=== PATIENT | female | born 1935 | race Caucasian/White ===

== ENCOUNTER 2020-11-05 13:09 | Emergency (ER) | payer MEDICARE ==
[~2020-11-05] VITALS: Ht 162.6 cm; Wt 61.4 kg
--- NOTE | 2020-11-05 14:08 | PHYS DOC ---
Past History Past Medical History: Arthritis, Hypothyroid, UTI Past Surgical History: , Other Additional Past Surgical Histo: left leg vein stripping; right knee replacement Alcohol Use: Occasionally Additional Alcohol Information: glass of wine in evening occasionally General Adult EDM: Chief Complaint: NEURO SYMPTOMS/DEFICITS HPI: HPI: Patient is a 85-year-old female who presents with right arm tingling from her elbow to her hand. Patient states symptoms started 4 days ago and states symptoms are intermittent. Patient denies any trauma. Patient states "I did get my Covid vaccine 2 weeks ago so I did not know if that had anything to do with it". Patient is unable to reproduce symptoms. Patient denies weakness, dizziness, chest pain. Patient states "it is not painful it is more irritating". Patient has full range of motion. Review of Systems: Review of Systems: Constitutional: Denies fever or chills Eyes: Denies change in visual acuity HENT: Denies nasal congestion or sore throat Respiratory: Denies cough or shortness of breath Cardiovascular: Denies chest pain or edema GI: Denies abdominal pain, nausea, vomiting, bloody stools or diarrhea : Denies dysuria Musculoskeletal: Denies back pain or joint pain Integument: Denies rash Neurologic: Denies headache, focal weakness, reports tingling in right arm Endocrine: Denies polyuria or polydipsia Lymphatic: Denies swollen glands Psychiatric: Denies depression or anxiety Allergies: Allergies: Allergies Coded Allergies Type Severity Reaction Last Updated Verified No Known Drug Allergies 11/05/20 No Physical Exam: PE: Constitutional: Well developed, well nourished, no acute distress, non-toxic appearance. [] HENT: Normocephalic, atraumatic, bilateral external ears normal, oropharynx gauri st, no oral exudates, nose normal. [] Eyes: PERRLA, EOMI, conjunctiva normal, no discharge. [] Neck: Normal range of motion, no tenderness, supple, no stridor. [] Cardiovascular:Heart rate regular rhythm, no murmur [] Lungs & Thorax: Bilateral breath sounds clear to auscultation [] Abdomen: Bowel sounds normal, soft, no tenderness, no masses, no pulsatile masses. [] Skin: Warm, dry, no erythema, no rash. [] Back: No tenderness, no CVA tenderness. [] Extremities: No tenderness, no cyanosis, no clubbing, ROM intact, no edema. [] Neurologic: Alert and oriented X 3, normal motor function, normal sensory function, no focal deficits noted. [] Psychologic: Affect normal, judgement normal, mood normal. [] Current Patient Data: Vital Signs: Vital Signs Date Time Temp Pulse Resp B/P (MAP) Pulse Ox O2 Delivery O2 Flow Rate FiO2 11/05/20 13:26 97.6 79 21 166/82 (110) 96 Room Air EKG: EKG: Sinus rhythm. Heart rate 79 bpm. [] Radiology/Procedures: Radiology/Procedures: []EXAM: Head CT without contrast. HISTORY: Upper extremity paresthesia. TECHNIQUE: Computed tomographic images of the head were obtained without contrast. *One or more of the following individualized dose reduction techniques were uti lized for this examination: 1. Automated exposure control. 2. Adjustment of the mA and/or kV according to patient size. 3. Use of iterative reconstruction technique. COMPARISON: None. FINDINGS: There is no acute or subacute extra-axial or intraparenchymal hemorrhage. There is no mass effect or midline shift. There is no hydrocephalus. There are areas of decreased attenuation within the cerebral white matter, nonspecific and likely related to chronic small vessel disease. There is cerebral atrophy. The visualized portions of the orbits, paranasal sinuses and mastoid air cells are unremarkable. No suspicious calvarial lesion is seen. IMPRESSION: 1. No acute intracranial finding. Note is made that MRI is more sensitive for acute infarction. 2. Bilateral cerebral white matter changes, likely due to chronic small vessel disease. 3. Cerebral atrophy. Electronically signed by: Marilin Dick MD (11/05/2020 2:49 PM) [id number] EXAM: Chest, single view. HISTORY: Paresthesia. COMPARISON: None. FINDINGS: A frontal view of the chest obtained. There is no infiltrate, pleural effusion or pneumothorax. The heart is normal in size. There is biapical pleural parenchymal scarring. IMPRESSION: No acute pulmonary finding. Electronically signed by: Marilin Dick MD (11/05/2020 2:49 PM) [id number] Heart Score: C/O Chest Pain: No Risk Factors: Risk Factors: DM, Current or recent (<one month) smoker, HTN, HLP, family history of CAD, obesity. Risk Scores: Score 0 - 3: 2.5% MACE over next 6 weeks - Discharge Home Score 4 - 6: 20.3% MACE over next 6 weeks - Admit for Clinical Observation Score 7 - 10: 72.7% MACE over next 6 weeks - Early Invasive Strategies Course & Med Decision Making: Course & Med Decision Making Pertinent Labs and Imaging studies reviewed. (See chart for details) []Patient is a 85-year-old female who presents with right arm tingling from her elbow to her hand. Patient states symptoms started 4 days ago and states symptoms are intermittent. Patient denies any trauma. Patient states "I did get my Covid vaccine 2 weeks ago so I did not know if that had anything to do with it". Patient is unable to reproduce symptoms. Patient denies weakness, dizziness, chest pain. Patient states "it is not painful it is more irritating". Patient has full range of motion. Labs are all unremarkable. CT of head negative for acute intracranial finding. Chest x-ray is negative for any acute abnormality. Spoke with patient and family regarding patient's blood pressure. Patient's blood pressure has been elevated while in the emergency room. When I went to reassess the patient blood pressure was 220s over 110s. Family states that patient does not have a history of hypertension and blood pressure is normally in the 120s. Patient does not take medication for blood pressure. Patient's family states that she has complained of a headache for the last 2 days. Creatinine is 1.2. EKG sinus rhythm. Heart rate 79 bpm. Discussed admission with patient and son. Patient was strongly against staying overnight. Patient states they are able to get an appointment in the morning with PCP. Patient agrees to return to the emergency room with worsening symptoms or concerns. Patient has appointment with PCP at 9 AM for follow-up. Patient and son are both okay with this plan. [place] Disclaimer: Goldydanny Disclaimer: This electronic medical record was generated, in whole or in part, using a voice recognition dictation system. Departure Departure: Impression: Primary Impression: Hypertension Qualified Codes: I10 - Essential (primary) hypertension Disposition: 01 DC HOME SELF CARE/HOMELESS Condition: GOOD Referrals: HERNANDO NUNES MD (PCP) Patient Instructions: Managing Your High Blood Pressure Additional Instructions: You were seen in the ED for tingling in your left forearm. The CT of your head was negative for any acute abnormalities. Your lab work was unremarkable. I want you to follow up with tomorrow morning to address the increase in your blood pressure. Make sure to take your blood pressure cuff with you to the doctor to verify the accuracy of your BP machine. Please return to the ED with worsening symptoms or concerns. EMERGENCY DEPARTMENT GENERAL DISCHARGE INSTRUCTIONS Thank you for coming to [facility] (ED) today and trusting us with you care. We trust that you had a positivie experience in our Emergency Department. If you wish to speak to the department management, you may call the director at [phone]. YOUR FOLLOW UP INSTRUCTIONS ARE FOLLOWS: 1. Do you have a private Doctor? If you do not have a private doctor, please ask for a resource list of physicians or clinics that may be able to assist you with follow up care. 2. The Emergency Physician has interpreted your x-rays. The X-Ray specialist will also review them. If there is a change in the findings, you will be notified in 48 hours when at all possible. 3. A lab test or culture has been done, your results will be reviewed and you will be notified if you need a change in treatment. ADDITIONAL INSTRUCTIONS AND INFORMATION: 1. Your care today has been supervised by a physician who is specially trained in emergency care. Many problems require more than one evaluation for a complete diagnosis and treatment. We recommend that you schedule your follow up appointment as recommended to ensure complete treatment of you illness or injury. If you are unable to obtain follow up care and continue to have a problem, or if your condition worsens, we recommend that you return to the ED. 2. We are not able to safely determine your condition over the phone nor are we able to give sound medical advice over the phone. For these safety reasons, if you call for medical advice we will ask you to come to the ED for further evaluation. 3. If you have any questions regarding these discharge instructions please call the ED at [phone]. SAFETY INFORMATION: In the interest of safety, wellness, and injury prevention; we encourage you to wear your sealbelt, if you smoke; quite smoking, and we encourage family to use a protective helmet for bicycling and other sporting events that present an increased risk for head injury. IF YOUR SYMPTOMS WORSEN OR NEW SYMPTOMS DEVELOP, OR YOU HAVE CONCERNS ABOUT YOUR CONDITION; OR IF YOUR CONDITION WORSENS WHILE YOU ARE WAITING FOR YOUR FOLLOW UP APPOINTMENT; EITHER CONTACT YOUR PRIMARY CARE DOCTOR, THE PHYSICIAN WHOSE NAME AND NUMBER YOU WERE GIVEN, OR RETURN TO THE ED IMMEDIATELY. PATRICIA MARTINES APRN Nov 05, 2020 14:08
[2020-11-05 14:36] LABS: BASO # 0.1 x10^3/uL (0.0-0.2); BASO % 1 % (0-3); EOS # 0.1 x10^3/uL (0.0-0.7); EOS % 1 % (0-3); HEMATOCRIT 36.8 % (36.0-47.0); HEMOGLOBIN 12.4 g/dL (12.0-15.5); LYMPH # 1.2 x10^3/uL (1.0-4.8); LYMPH % 13 % (24-48); MEAN CORPUSCULAR HEMOGLOBIN 32 pg (25-35); MEAN CORPUSCULAR HGB CONC 34 g/dL (31-37); MEAN CORPUSCULAR VOLUME 96 fL (79-100); MONO # 0.7 x10^3/uL (0.0-1.1); MONO % 7 % (0-9); NEUT # 7.2 x10^3uL (1.8-7.7); NEUT % 78 % (31-73); PLATELET COUNT 220 x10^3/uL (140-400); RED BLOOD COUNT 3.83 x10^6/uL (3.50-5.40); RED CELL DISTRIBUTION WIDTH 12.6 % (11.5-14.5); WHITE BLOOD COUNT 9.2 x10^3/uL (4.0-11.0)
[2020-11-05 14:49] LABS: CREATININE 1.2 mg/dL (0.6-1.0); GFR 42.5; POTASSIUM 4.2 mmol/L (3.5-5.1)
--- NOTE | 2020-11-05 14:51 | RAD ---
EXAM: Head CT without contrast. HISTORY: Upper extremity paresthesia. TECHNIQUE: Computed tomographic images of the head were obtained without contrast. *One or more of the following individualized dose reduction techniques were utilized for this examina tion: 1. Automated exposure control. 2. Adjustment of the mA and/or kV according to patient size. 3. Use of iterative reconstruction technique. COMPARISON: None. FINDINGS: There is no acute or subacute extra-axial or intraparenchymal hemorrhage. There is no mass effect or midline shift. There is no hydrocephalus. There are areas of decreased attenuation within the cerebral white matter, nonspecific and likely rel ated to chronic small vessel disease. There is cerebral atrophy. The visualized portions of the orbits, paranasal sinuses and mastoid air cells are unremarkable. No s uspicious calvarial lesion is seen. IMPRESSION: 1. No acute intracranial finding. Note is made that MRI is more sensitive for acute infarction. 2. Bilateral cerebral white matter changes, likely due to chronic small vessel disease. 3. Cerebral atrophy. Electronically signed by: Marilin Dick MD (11/05/2020 2:49 PM) [id number]
--- NOTE | 2020-11-05 14:52 | RAD ---
EXAM: Chest, single view. HISTORY: Paresthesia. COMPARISON: None. FINDINGS: A frontal view of the chest obtained. There is no infiltrate, pleural effusion or pneumotho rax. The heart is normal in size. There is biapical pleural parenchymal scarring. IMPRESSION: No acute pulmonary finding. Electronically signed by: Marilin Dick MD (11/05/2020 2:49 PM) [id number]
--- NOTE | 2020-11-05 15:13 | EKG ---
[address] [address] Test Date: 2020-11-05 Test Time: 14:15:14 Pat Name: MARY ANN BLANC Department: Room: Gender: F Learning Disabled Teacher: JULIAN : 1935 Requested By: PATRICIA MARTINES Order Number: [id number] Reading MD: Measurements Intervals [place] Rate: 79 P: 63 IL: 148 QRS: 36 QRSD: 98 T: 72 QT: 366 QTc: 421 Interpretive Statements SINUS RHYTHM T ABNORMALITY IN HIGH LATERAL LEADS ABNORMAL ECG RI6.02 No previous ECG available for comparison
[2020-11-05 17:17] LABS: COLOR,URINE STRAW
[2020-11-05 17:18] LABS: BILIRUBIN,URINE NEG (NEG); CLARITY,URINE CLEAR; GLUCOSE,URINE NEG (NEG)
[2020-11-05 17:19] LABS: NITRITE,URINE NEG (NEG); UROBILINOGEN,URINE 0.2 mg/dL (0.2 mg/dL)
[2020-11-05 17:22] LABS: BACTERIA,URINE FEW /HPF (0-FEW); RBC,URINE OCC /HPF (0-2); SQUAMOUS EPITHELIAL CELL,UR FEW /LPF; WBC,URINE OCC /HPF (0-4)
[2020-11-05 17:23] LABS: YEAST,URINE PRESENT /HPF
[2020-11-05 18:38] VITALS: BP 192/84
== END 2020-11-05 18:40 | disposition home or self-care (01) ==
LOC: ER 13:09
DX: I10 Essential (primary) hypertension (principal); R20.2 Paresthesia of skin; M19.90 Unspecified osteoarthritis, unspecified site; E03.9 Hypothyroidism, unspecified; Z87.440 Personal history of urinary (tract) infections
CPT/HCPCS: 36415; 70450; 71045; 80048; 81001; 84484; 85025; 93005; 99285

== ENCOUNTER → 2020-11-18 | Outpatient (CLI) | payer MEDICARE ==
[2020-11-05 18:38] VITALS: BP 192/84
--- NOTE | 2020-11-18 17:01 | RAD ---
US DPLX CAROTID BILAT History: Reason: RT ARM NUMBNESS, POSSIBLE TIA / Spl. Instructions: / History: COMPARISON: None Technique: Duplex sonography of the cervical portion of both carotid arteries was performed. Real-bronson e grayscale, color flow Doppler, and Doppler spectral waveform analysis is performed. PQRS Compliance Statement - Stenosis calculations for CT, MR and conventional angiography are based u henrik measurement of the distal ICA diameter in accordance with the NASCET methodology. Stenosis calcu lations for carotid ultrasound studies are derived from validated velocity criteria which are known t o correlate with the NASCET methodology. Findings: Right side: Peak systolic flow velocity of the CCA is 55 cm/sec. Peak systolic flow velocity of the ICA is 58 cm/sec. The ICA/CCA ratio is 1.1. Peak end diastolic flow velocity of the ICA is 15 cm/sec. The peak systolic velocity of the ECA is 53 cm/sec. Mild atheromatous plaque. Left side: Peak systolic flow velocity of the CCA is 59 cm/sec. Peak systolic flow velocity of the ICA is 61 cm/sec. The ICA/CCA ratio is 1.0. Peak end diastolic flow velocity of the ICA is 18 cm/sec. Peak systolic flow velocity of the ECA is 43 cm/sec. Mild atheromatous plaque. Vertebral arteries: Bilateral vertebral arteries demonstrate antegrade flow. IMPRESSION: 1. No hemodynamically significant internal carotid artery stenosis. 2. Mild bilateral atheromatous plaque. Electronically signed by: Dipak Lopez DO (11/18/2020 4:59 PM) [id number]
--- NOTE | 2020-11-18 17:40 | RAD ---
XR CHEST 2V History: Reason: WHEEZING / Spl. Instructions: / History: Comparison: November 05, 2020 Findings: No consolidation or pleural effusion. Normal heart size. No pneumothorax. Prior granulomatous disease within the chest. Impression: 1. No acute cardiopulmonary process. Electronically signed by: Dipak Lopez DO (11/18/2020 5:37 PM) [id number]
--- NOTE | 2020-11-18 17:46 | RAD ---
EXAM: Bilateral hand and wrist DATE: 11/18/2020 11:13 AM INDICATIONS: Reason: BILATERAL HAND PAIN / Spl. Instructions: / History: COMPARISON: No prior FINDINGS: PA, AP, oblique and lateral views of the hand and wrist bilaterally show symmetric diffuse decreased bone mineral density.. Regional joint spaces are preserved. Scattered IP joint space narrow ing with small osteophytes. Thumb CMC joint degenerative changes are seen. Left triscaphe joint DJD. Negative erosive type changes. Negative old fracture right ulnar styloid. Periarticular soft tissue c alcifications or chondrocalcinosis. Negative focal soft tissue swelling. IMPRESSION: 1. No radiographic findings of inflammatory or erosive arthropathy. 2. Multifocal degenerative changes as above, most prominent at scattered IP joints, with bilateral b asilar thumb arthritis including right triscaphe DJD. 3. Decreased bone mineral density Electronically signed by: Marcellus Otero MD (11/18/2020 5:43 PM) [id number]
== END ==
LOC: US 10:14
PROVIDERS: ATTEND Family Medicine
DX: M19.042 Primary osteoarthritis, left hand (principal); M19.041 Primary osteoarthritis, right hand; I65.23 Occlusion and stenosis of bilateral carotid arteries
CPT/HCPCS: 71046; 73130; 93880